=== PATIENT | female | born 2000 | race Caucasian/White ===

== ENCOUNTER 2023-06-06 17:11 | Emergency (ER) | payer BC, SELFPAY ==
[2023-06-06 17:13] VITALS: BP 148/118; PULSE 90; RESP 18; TEMP 36.2; O2SAT 99; BMI 41.9
--- NOTE | 2023-06-06 18:58 | EDS_ITS ---
HPI HPI - Psych History of Present Illness Chief Complaint: Mental Health Detail of Chief Complaint: Devastating call that her support Was lost her dad etc. Informant: patient Onset/Context/Timing Onset: Today Context: Sudden Onset Conflict: - (Potential problem with support) Timing: Intermittent Current Severity: Gone Maximum Severity: Severe Worsened by: Situational factors Associated Symptoms Associated Symptoms - Psych: Negative for Depressed, Change in Eating, Change in sleeping, Decreased Interest, Guilt, Decreased Concentration, Hopelessness, Suicidal Thoughts, Easily distracted, Grandiosity, Flight of Ideas, Increased a ctivity, Pressured Speech, Agitated, Angry, Hostile, Threatening, Confusion, Paranoia, Visual Hallucinations or Auditory Hallucinations Specific plan (suicidal thought): Not applicable Narrative Narrative: Katharina is a 23-year-old 39 years student at [employer]. She has had a support For the past 2 years. Her boyfriend was unable to find the cat. She received what she believed to be a distressing call because her boyfriend cannot find it. She was not certain whether it was lost injured or . She panicked. She states that the cat was supposed to be with her. There is been problems at school getting this approved. She has become aware that the cat is fine. She was told that she had to come to the emergency department to be seen. She does speak with her counselor. She has no homicidal or suicidal thoughts. She has no visual or auditory hallucinations. Patient dressed appropriately. Her behavior is appropriate. Prior similar symptoms: No Recent Illness/Hospitalization: No PFSH PFSH Allergy/AdvReac Type Severity Reaction Status Date / Time No Known Allergies Allergy Verified 06/06/23 17:13 Surgical History no surgical history no surgical history Social History (Updated 06/06/23 @ 19:[address] Gael Berry MD) household members: significant other substance use type: does not use ROS ROS ED Constitutional Constitutional ED: Denies chills, fever(s) or subjective Eyes Eyes: Denies blurry vision or change in vision Cardiovascular Cardiovascular: Denies chest pain or palpitations Respiratory/Chest Respiratory/Chest: Denies cough or dyspnea Gastrointestinal Gastrointestinal: Denies nausea or vomiting Musculoskeletal Musculoskeletal: Denies arthralgias or myalgias Integumentary Denies rash Neurologic Neurologic: Denies weakness Psychiatric Psychiatric: Reports anxiety; Denies suicidal ideation or suicidal thoughts Hematologic/Lymphatic Hematologic/Lymphatic: Denies easy bleeding or easy bruising EXAM Physical Exam Const Vital Signs: 06/06/23 17:13 Temperature 97.2 F L Temperature Source Temporal Pulse Rate 90 Respiratory Rate 18 Blood Pressure 148/118 H Blood Pressure Mean 128 Pulse Ox 99 Oxygen Delivery Method Room Air Blood pressure is elevated. Patient is not tachycardic or tachypneic. She is not febrile or proximal. Positive well nourished, well developed and obese General Appearance ED: well developed and NAD Nutritional Appearance: obese HEENT Reports moist mucous membranes normocephalic and atraumatic Eyes PERRL and EOMs intact bilaterally General Eye ED: Negative for pale conjunctiva or scleral icterus Neck no lymphadenopathy, supple and no JVD Resp normal respiratory effort and clear to auscultation bilaterally Cardio S1 normal heart sound, S2 normal heart sound and no murmurs Rate: regular rate Rhythm: regular rhythm GI non-tender and non-distended Auscultation: normoactive bowel sounds Palpation: soft Extremity normal to inspection General Extremety ED: Negative for edema or tenderness General Extremity: Negative for edema Neuro oriented x3, CN's II-XII intact bilaterally and no sensory deficits noted [place] Coma Scale: document GCS findings Spontaneous Obeys Commands Oriented 15 Sensorium / Orientation: alert Psych mental status grossly normal, thought process normal, cooperative, affect normal, speech normal, activity/motor behavior normal, denies hallucinations, denies homicidal ideation and denies suicidal ideation Appearance: grossly normal Attitude: calm and engaged Activity / Motor Behavior: appropriate eye contact Speech: normal speech Thought Process: normal thought process Thought Content: normal thought content Attention / Concentration: attention grossly intact Memory / Cognition: memory grossly intact Insight: insight good Judgement: judgement good MDM MDM MDM Narrative Medical decision making narrative: Based on my history and physical and what patient told me there is no concern for suicidal ideation or any significant psychiatric disorder. This is a anxiety reaction due to alarming use as she put it regarding her support. There is no need for laboratory testing. Patient was discharged home to follow-up with her therapist next week Discharge Plan Triage Chief Complaint: Mental Health ED Provider: Gael Berry Dx/Rx/DC Orders Clinical Impression: Panic attack due to exceptional stress Instructions: ED Panic Attack Activity Restrictions/Additional Instructions: Follow-up with your counselor Disposition Disposition: Home, Self Care
[2023-06-06 19:00] VITALS: PULSE 68
== END 2023-06-06 20:01 | disposition home or self-care (01) ==
PROVIDERS: Emergency Provider Emergency Medicine; Visit Provider Emergency Medicine
DX: F41.0 Panic disorder [episodic paroxysmal anxiety] (principal); E66.9 Obesity, unspecified
CPT/HCPCS: 99282